=== PATIENT | female | born 1965 | race Hispanic/Latino ===

== ENCOUNTER 2018-07-03 06:36 | Day surgery (SDC) | payer OTHER ==
[2018-07-03 07:06] VITALS: TEMP 98
[2018-07-03] MEDS ORDERED: Lidocaine PF 2% (5 ml) Inj (For Cardiac Arrhy) ONE (08:05)
[2018-07-03] MEDS ORDERED: Propofol 10 mg/ml Inj (20 ML) ONE ×2 (08:05→08:19)
[2018-07-03] MEDS ORDERED: Sodium Chloride 0.9% 1,000 ML IV SCH (08:45)
[2018-07-03 09:36] VITALS: RESP 16
[2018-07-03 09:38] VITALS: BP 132/76; PULSE 60; O2SAT 100
== END 2018-07-03 10:19 | disposition home or self-care (01) ==
LOC: ENDO 06:36
PROVIDERS: ATTEND Specialist
DX: Z12.11 Encounter for screening for malignant neoplasm of colon (principal); D50.9 Iron deficiency anemia, unspecified; K64.8 Other hemorrhoids; E66.9 Obesity, unspecified
CPT/HCPCS: 45378; J2704; J7030